=== PATIENT | male | born 1940 | race Caucasian/White ===

== ENCOUNTER 2019-03-15 11:10 | Emergency (ER) | payer OTHER ==
[~2019-03-15] VITALS: Ht 177.8 cm; Wt 71.7 kg
[2019-03-15] MEDS ORDERED: PREDNISONE 10 M10 MG PO (12:12)
[2019-03-15 12:20] VITALS: BP 144/56
== END 2019-03-15 12:21 | disposition home or self-care (01) ==
LOC: ER 11:10
DX: S80.11XA Contusion of right lower leg, initial encounter (principal); L25.9 Unspecified contact dermatitis, unspecified cause; I10 Essential (primary) hypertension; E78.5 Hyperlipidemia, unspecified; N40.0 Benign prostatic hyperplasia without lower urinary tract symptoms; Z86.718 Personal history of other venous thrombosis and embolism; W20.8XXA Other cause of strike by thrown, projected or falling object, initial encounter; Y92.89 Other specified places as the place of occurrence of the external cause; Y93.89 Activity, other specified; Y99.8 Other external cause status